=== PATIENT | male | born 1950 | race Caucasian/White ===

== ENCOUNTER → 2019-09-05 | Outpatient (CLI) | payer MEDICARE ==
--- NOTE | 2019-09-06 11:01 | MM ---
Reason for exam: clinical finding. Baseline mammogram. History: Patient has history of other cancer at age 48. Family history of breast cancer in sister at age 40. Physical Findings: Nurse did not find any significant physical abnormalities on exam. [facility] Diagnostic Mammo w CAD JAYNA Bilateral CC and MLO view(s) were taken. XCCL view(s) were taken of the right breast. The breast tissue is almost entirely fat in the left breast. There are scattered fibroglandular densities in the right breast. Probable gynecomastia right breast. Ultasound recommended. These results were verbally communicated with the patient and result sheet given to the patient on 09/05/19. ASSESSMENT: Incomplete: need additional imaging evaluation, BI-RAD 0 RECOMMENDATION: Ultrasound of the right breast.
--- NOTE | 2019-09-06 11:03 | USB ---
Reason for exam: additional evaluation requested from abnormal screening. History: Patient has history of other cancer at age 48. Family history of breast cancer in sister at age 40. US Breast Limited BILAT Right limited breast ultrasound including focal area of concern, retroareolar and axilla demonstrates a 0.9 x 0.6 x 0.4cm cystic lesion at the posterior nipple and a 3.2 x 0.9cm solid, hypoechoic lesion at the posterior nipple. Gynecomastia. Left limited breast ultrasound including focal area of concern, retroareolar and axilla demonstrates no cystic or solid lesion seen. These results were verbally communicated with the patient and result sheet given to the patient on 09/05/19. ASSESSMENT: Benign, BI-RAD 2 RECOMMENDATION: Clinical management of both breasts. Manage patient on a clinical basis.
== END | disposition home or self-care (01) ==
LOC: EDBD → RADMAMWWP 13:26
PROVIDERS: ATTEND Family Medicine
DX: N63.10 Unspecified lump in the right breast, unspecified quadrant (principal); R92.8 Other abnormal and inconclusive findings on diagnostic imaging of breast
CPT/HCPCS: 77066

== ENCOUNTER → 2021-01-28 | Outpatient (CLI) | payer MEDICARE ==
--- NOTE | 2021-01-29 10:01 | ECHOF ---
Referral Reason:I10, SHANE.2 MEASUREMENTS -------- HEIGHT: 177.8 cm WEIGHT: 110.7 kg BP: 173/84 RVIDd: 3.7 cm (< 3.3) IVSd: 1.2 cm (0.6 - 1.1) LVIDd: 5.3 cm (3.9 - 5.3) LVPWd: 1.1 cm (0.6 - 1.1) IVSs: 1.8 cm LVIDs: 3.2 cm LVPWs: 1.6 cm LA Diam: 4.1 cm (2.7 - 3.8) LAESV Index (A-L): 31.77 ml/m Ao Diam: 4.3 cm (2.0 - 3.7) AV Cusp: 2.2 cm (1.5 - 2.6) MV EXCURSION: 24.989 mm (> 18.000) MV EF SLOPE: 177 mm/s (70 - 150) EPSS: 0.7 cm MV E Remy: 1.11 m/s MV DecT: 156 ms MV A Remy: 0.88 m/s MV E/A Ratio: 1.26 AR PHT: 778 ms RAP: 5.00 mmHg RVSP: 39.86 mmHg FINDINGS -------- Sinus rhythm. This was a technically adequate study. The left ventricular size is normal. There is borderline concentric left ventricular hypertrophy. Overall left ventricular systolic function is normal with, an EF between 60 - 65 %. The right ventricle is normal in size. LA is midly dilated 29-33ml/m2. The right atrium is normal in size. Interatrial and interventricular septum intact. There is mild aortic valve sclerosis. There is mild aortic regurgitation. Mild mitral annular calcification present. Mild mitral regurgitation is present. Mild tricuspid regurgitation present. There is mild pulmonary hypertension. The right ventricular systolic pressure, as measured by Doppler, is 39.86mmHg. Trace/mild (physiologic) pulmonic regurgitation. The aortic root is dilated measuring 4.3cm. IVC Not well visulized. There is no pericardial effusion. CONCLUSIONS -------- 1. The left ventricular size is normal. 2. There is borderline concentric left ventricular hypertrophy. 3. Overall left ventricular systolic function is normal with, an EF between 60 - 65 %. 4. LA is midly dilated 29-33ml/m2. 5. There is mild aortic valve sclerosis. 6. There is mild aortic regurgitation. 7. Mild mitral annular calcification present. 8. Mild mitral regurgitation is present. 9. Mild tricuspid regurgitation present. 10. There is mild pulmonary hypertension. 11. The right ventricular systolic pressure, as measured by Doppler, is 39.86mmHg. 12. Trace/mild (physiologic) pulmonic regurgitation. 13. The aortic root is dilated measuring 4.3cm. 14. There is no pericardial effusion. CASE REVIEWER: Jodi Guardado RDCS
== END | disposition home or self-care (01) ==
LOC: RADECHMAIN 16:15
PROVIDERS: ATTEND Internal Medicine Cardiovascular Disease
DX: I08.8 Other rheumatic multiple valve diseases (principal); I27.20 Pulmonary hypertension, unspecified
CPT/HCPCS: 93306